=== PATIENT | female | born 1980 | race Caucasian/White ===

== ENCOUNTER 2018-07-19 06:26 | Emergency (ER) | payer MEDICAID ==
[~2018-07-19] VITALS: Wt 78.1 kg
[~2018-07-19 06:26] MED LIST: BENZ-6 PO; GUAI5SYR2 PO; IBUP-1542 PO; NITR-58 PO
[2018-07-19 06:42] VITALS: BP 138/85; PULSE 75; RESP 18
[2018-07-19] MEDS ORDERED: IBUPROFEN 800 MG TAB PO ONE (07:00)
[2018-07-19] MEDS ORDERED: NAPR-985 PO (08:24)
--- NOTE | 2018-07-19 08:29 | ERD ---
ER Documentation Chief Complaint Chief Complaint chest hurts when breaths x 2 days HPI 38-year-old female presenting with chest wall pain times 2 days. Patient states she has some pain with breathing. Denies any shortness of breath. Has not taken medications for symptoms. Denies any recent cough. States she also has some mild epigastric pain. Denies any radiating chest pain. Denies medical problems. NKDA. Surgical history denies. Social history denies ROS All systems reviewed and are negative except as per history of present illness. Medications Home Meds Active Scripts Naproxen* (Naprosyn*) 500 Mg Tablet, 500 MG PO BID PRN for PAIN AND/OR INFLAMMATION, #30 TAB Prov:MONICA DREW PA-C 07/19/18 Ibuprofen* (Motrin*) 600 Mg Tab, 600 MG PO Q6H PRN for PAIN, #30 TAB Prov:ORLY MOORE PA-C 06/09/16 Benzonatate* (Tessalon Perle*) 100 Mg Capsule, 100 MG PO Q8H PRN for COUGH for 7 Days, CAP Prov:ORLY MOORE PA-C 06/09/16 Benzonatate* (Tessalon Perle*) 100 Mg Capsule, 100 MG PO TID for 5 Days, #15 CAP Prov:SHANNAN KIM PA-C 05/18/16 Guaifenesin-Dextromethorphan* (Robitussin* DM) 100MG/10MG/5ML Syrup, 5 ML PO Q6H PRN for COUGH, #1 BOT Prov:SHANNAN KIM PA-C 05/18/16 Ibuprofen* (Motrin*) 600 Mg Tab, 600 MG PO Q6, #15 TAB Prov:SHANNAN KIM PA-C 05/18/16 Nitrofurantoin Monohyd Macrocr* (Macrobid*) 100 Mg Capsr, 100 MG PO BID for 7 Days, CAP Prov:WILLOW TURNER PA-C 08/20/15 Allergies Allergies: Coded Allergies: No Known Allergy (Unverified , 06/09/16) PMhx/Soc Medical and Surgical Hx: pt denies Medical Hx History of Surgery: Yes (APPENDECTOMY) Anesthesia Reaction: No Hx Neurological Disorder: No Hx Respiratory Disorders: No Hx Cardiac Disorders: No Hx Psychiatric Problems: No Hx Miscellaneous Medical Probl: No Hx Alcohol Use: No Hx Substance Use: No Hx Tobacco Use: No Smoking Status: Never smoker FmHx Family History: No diabetes, No coronary disease, No other Physical Exam Vitals Vital Signs Date Temp Pulse Resp B/P (MAP) Pulse Ox O2 O2 Flow FiO2 Time Delivery Rate 07/19/18 98.6 75 18 138/85 99 06:42 (102) Physical Exam GENERAL: The patient is well-appearing, well-nourished, in no acute distress CHEST: Clear to auscultation bilaterally. There are no rales, wheezes or rhonchi. HEART: Regular rate and rhythm. No murmurs, clicks, rubs or gallops. No S3 or S4. ABDOMEN: Normal active bowel sounds. No distention. Mild tenderness palpation epigastric region with no rebound tenderness. EXTREMITIES: Equal pulses bilaterally. There is no peripheral clubbing, cya nosis or edema. No focal swelling or erythema. Full range of motion. Grossly neurovascularly intact. NEUROLOGIC: Alert and oriented. Cranial nerves II through XII intact. Motor strength in all 4 extremities with 5 out of 5 strength. Sensation grossly intact. Normal speech and gait. Result Diagram: 07/19/18 0711 07/19/18 0711 Results 24 hrs Laboratory Tests Test 07/19/18 07:11 07/19/18 07:22 White Blood Count 7.6 10^3/ul Red Blood Count 4.24 10^6/ul Hemoglobin 13.4 g/dl Hematocrit 39.2 % Mean Corpuscular Volume 92.5 fl Mean Corpuscular Hemoglobin 31.6 pg Mean Corpuscular Hemoglobin Concent 34.2 g/dl Red Cell Distribution Width 12.7 % Platelet Count 392 10^3/UL Mean Platelet Volume 10.2 fl Immature Granulocytes % 0.100 % Neutrophils % 58.3 % Lymphocytes % 30.2 % Monocytes % 9.1 % Eosinophils % 1.8 % Basophils % 0.5 % Nucleated Red Blood Cells % 0.0 /100WBC Immature Granulocytes # 0.010 10^3/ul Neutrophils # 4.4 10^3/ul Lymphocytes # 2.3 10^3/ul Monocytes # 0.7 10^3/ul Eosinophils # 0.1 10^3/ul Basophils # 0.0 10^3/ul Nucleated Red Blood Cells # 0.0 10^3/ul Urine Color YELLOW Urine Clarity SLIGHTLY CLOUDY Urine pH 6.0 Urine Specific Fenton 1.008 Urine Ketones NEGATIVE mg/dL Urine Nitrite NEGATIVE mg/dL Urine Bilirubin NEGATIVE mg/dL Urine Urobilinogen NEGATIVE mg/dL Urine Leukocyte Esterase TRACE Moe/ul Urine Microscopic RBC 2 /HPF Urine Microscopic WBC 1 /HPF Urine Squamous Epithelial Cells MODERATE /HPF Urine Bacteria FEW /HPF Urine Hemoglobin 1+ mg/dL Urine Glucose NEGATIVE mg/dL Urine Total Protein NEGATIVE mg/dl Sodium Level 138 mmol/L Potassium Level 4.0 mmol/L Chloride Level 105 mmol/L Carbon Dioxide Level 23 mmol/L Anion Gap 10 Blood Urea Nitrogen 10 mg/dl Creatinine 0.62 mg/dl Est Glomerular Filtrat Rate mL/min > 60 mL/min Glucose Level 94 mg/dl Calcium Level 9.3 mg/dl Total Bilirubin 0.4 mg/dl Direct Bilirubin 0.00 mg/dl Indirect Bilirubin 0.4 mg/dl Aspartate Amino Transf (AST/SGOT) 27 IU/L Alanine Aminotransferase (ALT/SGPT) 28 IU/L Alkaline Phosphatase 75 IU/L Troponin I < 0.012 ng/ml Total Protein 7.8 g/dl Albumin 4.3 g/dl Globulin 3.50 g/dl Albumin/Globulin Ratio 1.22 Lipase 107 U/L POC Beta HCG, Qualitative NEGATIVE Current Medications Medications Dose Sig/Stiven Start Time Status Last (Trade) Ordered Route PRN Stop Time Admin Dose Reason Admin Ibuprofen 800 mg ONCE ONCE 07/19/18 DC 07/19/18 (Motrin) PO 07:00 07:29 07/19/18 07:01 Procedures/MDM DIAGNOSTIC IMAGING REPORT Patient: KYLER VALDOVINOS : 1980 Age: 38 Sex: F MR #: [id number] DOS: 07/19/18 0703 Ordering MD: UMER DREW PA-C Location: [facility] Room/Bed: PROCEDURE: US Abdomen (right upper quadrant). CLINICAL INDICATION: Right upper quadrant pain TECHNIQUE: Multiple real-time longitudinal and transverse images of the right upper quadrant of the abdomen were acquired utilizing a curved array transducer. Images were reviewed on a high-resolution PACS workstation. COMPARISON: None FINDINGS: The liver is normal in size and echogenicity without focal mass or intrahepatic biliary dilatation. There is normal hepatopedal flow within the main portal vein. Liver measures 14.7 cm. The gallbladder is normal. There is no pericholecystic fluid or gallbladder wall thickening or gallstones. No intra or extrahepatic biliary dilatation is seen. The common bile duct measures 4 mm in maximal dimension. The visualized portions of the pancreas are unremarkable. No free fluid is identified. The right kidney measures 9.4 cm in length. There is normal echogenicity within the right kidney. There is no perinephric fluid collection. No hydronephrosis, mass, or calculus is seen. IMPRESSION: Unremarkable right upper quadrant ultrasound. DIAGNOSTIC IMAGING REPORT Patient: KYLER VALDOVINOS : 1980 Age: 38 Sex: F [facility] #[id number] [id number] DOS: 07/19/18 0659 Ordering MD: UMER DREW PA-C Location: [facility] Room/Bed: PROCEDURE: XR Chest. CLINICAL INDICATION: Chest pain TECHNIQUE: PA upright chest was obtained COMPARISON: Chest 05/18/2016 FINDINGS: Cardiomediastinal silhouette is normal. Pulmonary vasculature is normal. Lungs and costophrenic angles are clear. Bones soft tissues unremarkable. IMPRESSION: No evidence of acute cardiopulmonary disease. EKG: Rate/Rhythm: 83 bpm. normal Sinus Rhythm QRS, ST, T-waves: No changes consistent w/ acute ischemia Impression: No evidence of ischemia or arrhythmia MDM: 38-year-old female presenting with chest wall pain and epigastric pain. Patient's blood work, vitals, imaging and exam are within normal limits. I have low suspicion for cardiac or pulmonary emergency. I have considered AR versus PE versus pneumothorax versus endocarditis or other infectious etiology. Patient does not have findings consistent with choledocholithiasis, cholecystitis, cholangitis or pancreatitis. She is discharged stricter precautions and told to follow-up with primary care within 1-2 days for close evaluation. Patient is discharged with supportive medications. All questions answered at discharge Departure Diagnosis: Primary Impression: Chest wall pain Condition: Stable Patient Instructions: Chest Pain, Uncertain Cause Referrals: COMM[facility]ITY [facility] YOU HAVE RECEIVED A MEDICAL SCREENING EXAM AND THE RESULTS INDICATE THAT YOU DO NOT HAVE A CONDITION THAT REQUIRES URGENT TREATMENT IN THE EMERGENCY DEPARTMENT. FURTHER EVALUATION AND TREATMENT OF YOUR CONDITION CAN WAIT UNTIL YOU ARE SEEN IN YOUR DOCTORS OFFICE WITHIN THE NEXT 1-2 DAYS. IT IS YOUR RESPONSIBILITY TO MAKE AN APPOINTMENT FOR FOLOW-UP CARE. IF YOU HAVE A PRIMARY DOCTOR --you should call your primary doctor and schedule an appointment IF YOU DO NOT HAVE A PRIMARY DOCTOR YOU CAN CALL OUR PHYSICIAN REFERRAL HOTLINE AT IF YOU CAN NOT AFFORD TO SEE A PHYSICIAN YOU CAN CHOSE FROM THE FOLLOWING [facility] [address] [facility] [address] [facility] [address] [facility] [address] [facility]. [facility] [address] [facility]. [facility]. [address] Additional Instructions: FOLLOW UP WITH YOUR PRIMARY CARE PHYSICIAN TOMORROW.Return to this facility if you are not improving as expected. MONICA DREW PA-C Jul 19, 2018 08:29
== END 2018-07-19 08:34 | disposition home or self-care (01) ==
LOC: FTE 06:26
DX: R07.89 Other chest pain (principal)
CPT/HCPCS: 36415; 71045; 76705; 80053; 81001; 81025; 83690; 84484; 85025; 93005; Z7502; Z7610